=== PATIENT | male | born 1975 | race Hispanic/Latino ===

== ENCOUNTER 2022-03-03 09:52 | Outpatient (CLI) | payer OTHER | END 2022-03-03 09:53 | disposition home or self-care (01) | LOC: BICRAD 09:52 | PROVIDERS: ATTEND Nurse Practitioner Women's Health | DX: R10.13 Epigastric pain (principal); N32.89 Other specified disorders of bladder | CPT/HCPCS: 74018 ==

== ENCOUNTER 2022-03-04 12:19 | Emergency (ER) | payer SELFPAY ==
[2022-03-04 12:51] LABS: #Lymphocytes 1.2 thou/uL (1.20-3.40); #Monocytes 0.9 thou/uL (0.11-0.59); #Neutrophils 15.4 thou/uL (1.40-6.50); %Eosinophils 0.1 % (0.0-10.0); %Lymphocytes 6.7 % (21.0-51.0); %Monocytes 5.2 % (0.0-10.0); %Neutrophils 87.9 % (42.0-75.0); Hemoglobin 13.5 g/dL (14.0-18.0); Mean Corpuscular HGB CONC 33.1 g/dL (32.0-36.0); Mean Corpuscular Volume 90.8 fL (78.0-98.0); Platelet Count 172 thou/uL (130-400); Red Blood Cell (RBC) Count 4.49 mill/uL (4.70-6.10); White Blood Cell (WBC) Count 17.5 thou/uL (4.8-10.8)
[2022-03-04 13:15] LABS: ALT (SGPT) 51 U/L (8-55); AST (SGOT) 29 U/L (5-34); Albumin 3.7 g/dL (3.5-5.0); Alkaline Phosphatase 152 U/L (40-110); Anion Gap 16 mmol/L (10-20); BUN (Urea Nitrogen) 15 mg/dL (8.9-20.6); Bilirubin, Total 3.4 mg/dL (0.2-1.2); Calc. Creatinine Clearance 0 mL/min (70-130); Calcium 8.6 mg/dL (7.8-10.44); Carbon Dioxide 22 mmol/L (22-29); Chloride 101 mmol/L (98-107); Estimated GFR 102; Globulin 2.9 g/dL (2.4-3.5); Glucose 135 mg/dL (70-105); Potassium 3.7 mmol/L (3.5-5.1); Protein, Total 6.6 g/dL (6.0-8.3); Sodium 135 mmol/L (136-145)
[2022-03-04 14:18] LABS: Bacteria/HPF 1+ HPF (None Seen); Bilirubin Negative (Negative); Blood, Urine 2+ (Negative); Clarity Clear (Clear); Glucose, Urine (Dipstick) Normal (Negative); Ketone, Urine Negative (Negative); Leukocyte Negative Leu/uL (Negative); Nitrite Negative (Negative); Protein, Urine (Dipstick) 300 mg/dL (Neg-Trace); RBC/HPF Greater than 50 HPF (0-3); Specific Gravity, Urine 1.028 (1.002-1.036); Squamous Epithelial None Seen HPF (0-3)
[2022-03-04] MEDS ORDERED: Piperacillin/Tazobactam 4.5 GM VIAL ONE (15:08)
[2022-03-04] MEDS ORDERED: Sodium Chloride 0.9% 1,000 ML IV SCH ×3 (15:45→22:30)
[2022-03-04] MEDS ORDERED: Ketorolac Tromethamine 30 MG/ML VIAL IVP SCH ×5 (15:45→23:59)
[2022-03-04] MEDS ORDERED: Morphine 4 MG/ML VIAL ONE (15:54)
[2022-03-04 16:08] LABS: SARS-CoV-2 NAA Rapid Test Not Detected (NotDetected)
[2022-03-04] MEDS ORDERED: Piperacillin/Tazobactam 3.375 GM in Sodium Chloride 0.9% 100 ML IVPB SCH ×2 (18:00→22:30)
[2022-03-04] MEDS ORDERED: Bupivacaine HCl 0.5%/Epinephrine 1:200,000/PF 30 ml Vial ONE (19:42)
[2022-03-04] MEDS ORDERED: Succinylcholine 200 MG/10 ml SYRINGE FS ONE (19:52)
[2022-03-04] MEDS ORDERED: Ondansetron PF 4 MG/2 ML Vial ONE (19:52)
[2022-03-04] MEDS ORDERED: Glycopyrrolate 0.2 MG/ML 5 ML SYRINGE ONE (19:52)
[2022-03-04] MEDS ORDERED: PROPOFOL 200 MG/20 ML VIAL ONE (19:52)
[2022-03-04] MEDS ORDERED: Lidocaine 1% MPF 2 ML VIAL ONE (19:52)
[2022-03-04] MEDS ORDERED: Rocuronium Bromide 10 MG/ML (10ML VIAL) ONE (19:52)
[2022-03-04] MEDS ORDERED: Dexamethasone 20 MG/5 ML VIAL ONE (19:52)
[2022-03-04] MEDS ORDERED: NEOSTIGMINE 3 MG/3 ML SYR 3 MG/3 ML SYRINGE ONE (19:52)
[2022-03-04] MEDS ORDERED: HYDROcodone/Acetaminophen 5/325 mg Tablet PO PRN ×2 (22:07→22:08)
[2022-03-04] MEDS ORDERED: Morphine 2 MG/ML VIAL SLOW IVP PRN (22:08)
[2022-03-04] MEDS ORDERED: Ondansetron HCl/PF 4 MG/2 ML Vial IVP PRN (22:15)
[2022-03-04] MEDS ORDERED: Promethazine HCl 25 MG/ML VIAL IM/IV PRN (22:15)
[2022-03-04] MEDS ORDERED: Non-Formulary Medication 1 EACH PO PRN (22:23)
[2022-03-04] MEDS ORDERED: HYDROcodone/Acetaminophen 5/325 mg Tablet ONE (22:59)
[2022-03-05] MEDS ORDERED: Piperacillin/Tazobactam 3.375 GM in Sodium Chloride 0.9% 100 ML IVPB SCH (06:00)
== END 2022-03-04 17:40 | disposition admitted as inpatient to this hospital (09) ==
LOC: ERS 12:19
PROC: 0DTJ4ZZ Resection of Appendix, Percutaneous Endoscopic Approach (ICD-10-PCS; principal; 2022-03-04)
DX: K35.891 Other acute appendicitis without perforation, with gangrene (principal); K38.1 Appendicular concretions; N21.0 Calculus in bladder
CPT/HCPCS: 36415; 74176; 80053; 81003; 81015; 83605; 85025; 87040; 88304; 93005; 96365; 96375; A4649; J1100; J2270; J2405; J2543; J2704; J7050; U0002

== ENCOUNTER 2022-04-22 09:34 | Outpatient (CLI) | payer SELFPAY ==
[2022-04-22 11:07] LABS: Bilirubin Neg (Negative); Blood, Urine 25 (Negative); Clarity Clear (Clear); Glucose, Urine (Dipstick) Normal (Negative); Ketone, Urine Negative (Negative); Leukocyte 25 (Negative); Nitrite Negative (Negative); Protein, Urine (Dipstick) 100 mg/dl (Neg-Trace); Specific Gravity, Urine 1.025 (1.005-1.030); Urobilinogen Normal mg/dL (Less than 2)
[2022-04-22 11:21] LABS: Hemoglobin 13.2 g/dL (13.5-17.5); Mean Corpuscular HGB CONC 34.1 g/dL (32.0-36.0); Mean Corpuscular Hemoglobin 29.6 pg (27.0-33.0); Mean Corpuscular Volume 86.8 fl (81.2-95.1); Mean Platelet Volume 10.8 fl (7.4-10.4); Platelet Count 262 10x3/uL (150-450); RBC Distribution Width 13.4 % (11.5-14.5); Red Blood Cell (RBC) Count 4.46 10x6/uL (4.32-5.72)
[2022-04-22 11:24] LABS: Bacteria/HPF Rare-Few HPF (None Seen); Squamous Epithelial 0-3 HPF (0-3)
[2022-04-22 11:27] LABS: PTT 27.4 sec (22.0-33.0); Prothrombin Time 10.5 sec (9.5-12.1)
[2022-04-22 11:47] LABS: Anion Gap 13 mmol/L (10-20); BUN (Urea Nitrogen) 16 mg/dL (8.9-20.6); Calc. Creatinine Clearance 0 mL/min (70-130); Calcium 9.2 mg/dL (7.8-10.44); Carbon Dioxide 26 mmol/L (22-29); Chloride 108 mmol/L (98-107); Estimated GFR 114; Glucose 104 mg/dL (70-105); Sodium 143 mmol/L (136-145)
== END 2022-04-22 09:35 | disposition home or self-care (01) ==
LOC: LABBT 09:34
PROVIDERS: ATTEND Urology
DX: Z01.818 Encounter for other preprocedural examination (principal); N42.0 Calculus of prostate; N21.0 Calculus in bladder
CPT/HCPCS: 80048; 81001; 85027; 85610; 85730; 87086; 93005; 93010

== ENCOUNTER 2022-04-29 07:48 | Day surgery (SDC) | payer SELFPAY ==
[2022-04-28 13:45] VITALS: BMI 25.0
[2022-04-29] MEDS ORDERED: fentaNYL PF 100 MCG/2 ML SYRINGE ONE (11:13)
[2022-04-29] MEDS ORDERED: Levofloxacin 500 mg/D5W 100 ml Premix Bag ONE (11:27)
[2022-04-29] MEDS ORDERED: Glycopyrrolate 0.2 MG/ML 5 ML SYRINGE ONE (11:36)
[2022-04-29] MEDS ORDERED: PROPOFOL 200 MG/20 ML VIAL ONE (11:36)
[2022-04-29] MEDS ORDERED: Ketorolac Tromethamine 30 MG/ML VIAL ONE (11:36)
[2022-04-29] MEDS ORDERED: Ondansetron PF 4 MG/2 ML Vial ONE (11:36)
[2022-04-29] MEDS ORDERED: NEOSTIGMINE 3 MG/3 ML SYR 3 MG/3 ML SYRINGE ONE (11:36)
[2022-04-29] MEDS ORDERED: Dexamethasone 20 MG/5 ML VIAL ONE (11:36)
[2022-04-29] MEDS ORDERED: Rocuronium Bromide 10 MG/ML (10ML VIAL) ONE (11:36)
[2022-04-29] MEDS ORDERED: PHENYLEPHRINE-NS 100 MCG/ML 10 ML SYRINGE ONE (11:36)
[2022-04-29] MEDS ORDERED: B & O ONE (12:03)
== END 2022-04-29 15:55 | disposition home or self-care (01) ==
LOC: SDC 07:48
PROVIDERS: ATTEND Urology
PROC: 0TCB8ZZ Extirpation of Matter from Bladder, Via Natural or Artificial Opening Endoscopic (ICD-10-PCS; principal; 2022-04-29)
DX: N42.0 Calculus of prostate (principal)
CPT/HCPCS: 82365; 88300; C1769; J1100; J1885; J1956; J2405; J2704